=== PATIENT | female | born 1965 | race African-American/Black ===

== ENCOUNTER → 2016-11-26 | Outpatient (CLI) | payer OTHER ==
[2016-11-26 12:46] LABS: ABSOLUTE EOSINOPHILS # (AUTO) 0.2 10^3/uL (0.0-0.6); ABSOLUTE LYMPHOCYTES (AUTO) 1.1 10^3/uL (0.5-4.7); ABSOLUTE MONOCYTES (AUTO) 0.3 10^3/uL (0.1-1.4); ABSOLUTE NEUT (AUTO) 1.4 10^3/uL (1.7-8.2); BASOPHILS % (AUTO) 1.2 % (0-2); EOSINOPHILS % (AUTO) 6.3 % (0-6); HEMATOCRIT 28.8 % (36.0-47.0); HEMOGLOBIN 9.3 g/dL (12.0-15.5); HGB HCT DIFFERENCE -0.9; MEAN CORPUSCULAR HEMOGLOBIN 25.8 pg (27.0-33.4); MEAN CORPUSCULAR HGB CONC 32.1 g/dL (32.0-36.0); MEAN CORPUSCULAR VOLUME 80 fl (80-97); MONOCYTES % (AUTO) 9.6 % (3-13); RED BLOOD COUNT 3.59 10^6/uL (3.72-5.28); RED CELL DISTRIBUTION WIDTH 16.8 % (11.5-14.0); SEGMENTED NEUTROPHILS % (AUTO) 45.9 % (42-78); WHITE BLOOD COUNT 3.1 10^3/uL (4.0-10.5)
[2016-11-26 12:53] LABS: AMORPHOUS SEDIMENT,URINE 1+ /HPF; APPEARANCE,URINE CLOUDY; BILIRUBIN,URINE NEGATIVE (NEGATIVE); GLUCOSE, URINE NEGATIVE (NEGATIVE); KETONES,URINE NEGATIVE (NEGATIVE); LEUKOCYTE ESTERASE,URINE NEGATIVE (NEGATIVE); NITRITE,URINE NEGATIVE (NEGATIVE); PROTEIN,URINE NEGATIVE (NEGATIVE); URINE SPECIFIC GRAVITY 1.017; UROBILINOGEN,URINE NEGATIVE mg/dL (<2.0)
[2016-11-26 13:08] LABS: ANION GAP 11 (5-19); BLOOD UREA NITROGEN 11 mg/dL (7-20); CALCIUM 9.8 mg/dL (8.4-10.2); CARBON DIOXIDE 27 mmol/L (22-30); CHLORIDE 104 mmol/L (98-107); CREATININE RESULT 0.54 mg/dL (0.52-1.25); GLUCOSE 90 mg/dL (75-110); POTASSIUM 3.8 mmol/L (3.6-5.0)
--- NOTE | 2016-11-26 18:14 | EKG REPORT ---
SEVERITY:- NORMAL ECG - SINUS RHYTHM : Confirmed by: Sixto Montilla MD 26-Nov-2016 18:12:17
== END ==
LOC: OD 11:14
PROVIDERS: ATTEND Orthopaedic Surgery
DX: Z01.811 Encounter for preprocedural respiratory examination (principal); Z01.818 Encounter for other preprocedural examination
CPT/HCPCS: 36415; 71020; 80048; 81001; 85025; 93005; 93010

== ENCOUNTER 2016-12-27 06:07 | Inpatient (IN) | payer OTHER ==
[2016-12-16 12:11] LABS: HEMOGLOBIN 10.2 g/dL (12.0-15.5); HGB HCT DIFFERENCE -1.4; MEAN CORPUSCULAR HEMOGLOBIN 25.8 pg (27.0-33.4); MEAN CORPUSCULAR HGB CONC 31.7 g/dL (32.0-36.0); MEAN CORPUSCULAR VOLUME 82 fl (80-97); RED BLOOD COUNT 3.93 10^6/uL (3.72-5.28); RED CELL DISTRIBUTION WIDTH 16.6 % (11.5-14.0); WHITE BLOOD COUNT 3.6 10^3/uL (4.0-10.5)
[2016-12-16 12:16] LABS: AMORPHOUS SEDIMENT,URINE TRACE /HPF; APPEARANCE,URINE CLOUDY; BILIRUBIN,URINE NEGATIVE (NEGATIVE); GLUCOSE, URINE NEGATIVE (NEGATIVE); KETONES,URINE NEGATIVE (NEGATIVE); LEUKOCYTE ESTERASE,URINE NEGATIVE (NEGATIVE); NITRITE,URINE NEGATIVE (NEGATIVE); PROTEIN,URINE NEGATIVE (NEGATIVE); URINE SPECIFIC GRAVITY 1.011; UROBILINOGEN,URINE NEGATIVE mg/dL (<2.0)
[2016-12-16 12:30] LABS: ANION GAP 13 (5-19); BLOOD UREA NITROGEN 10 mg/dL (7-20); CALCIUM 9.9 mg/dL (8.4-10.2); CARBON DIOXIDE 28 mmol/L (22-30); CHLORIDE 104 mmol/L (98-107); CREATININE RESULT 0.63 mg/dL (0.52-1.25); GLUCOSE 81 mg/dL (75-110); POTASSIUM 4.2 mmol/L (3.6-5.0); SODIUM 145.4 mmol/L (137-145)
[~2016-12-27 06:07] MED LIST: BUPIVACAINE INJ/PF LIPOSOME/PF 266 MG/20 ML SDV IJ PRN; CEFAZOLIN INJ 1 GM VIAL IV PRN; IBUPROFEN 800 MG/NS 250 ML IV PRN; LACTATED RINGERS 1000 ML IV PRN; LANSOPRAZOLE 15 MG TAB.RAP.DR PO PRN; LIDOCAINE 0.5% INJ-PF (5 MG/ML) 50 ML SDV SUBCUT PRN; OXYCODONE HCL SR 10 MG TABLET PO PRN; SCOPOLAMINE HYDROBROMIDE 1.5 MG PATCH.TD72 TOP PRN; VANCOMYCIN HCL 1,000 MG in DEXTROSE 5%-WATER 250 ML IV PRN
[2016-12-27] MEDS ORDERED: THROMBIN (BOVINE) 5000 UNIT EPITAXIS KIT ONE (07:24)
[2016-12-27] MEDS ORDERED: THROMBIN (BOVINE) TOPICAL 20000 UNIT VIAL ONE (07:24)
[2016-12-27] MEDS ORDERED: BUPIVACAINE INJ/PF LIPOSOME/PF 266 MG/20 ML SDV ONE (07:24)
[2016-12-27] MEDS ORDERED: SUCCINYLCHOLINE CHLORIDE INJ 200 MG/10 ML VIAL ONE (07:39)
[2016-12-27] MEDS ORDERED: LIDOCAINE 2% INJ-PF (20 MG/ML) 10 ML AMPUL ONE (07:39)
[2016-12-27] MEDS ORDERED: DEXAMETHASONE SOD PHOSPHATE INJ 4 MG/1 ML VIAL ONE (09:16)
[2016-12-27] MEDS ORDERED: MIDAZOLAM 2 MG/2 ML INJ ONE ×2 (09:16)
[2016-12-27] MEDS ORDERED: ONDANSETRON HCL INJ/PF 4 MG/2 ML SDV ONE (09:16)
[2016-12-27] MEDS ORDERED: FENTANYL CITRATE INJ/PF 100 MCG/2 ML AMPUL ONE (09:16)
[2016-12-27] MEDS ORDERED: TRANEXAMIC ACID INJ/PF 1,000 MG/10 ML SDV IV ONE ×3 (09:17→14:00)
[2016-12-27] MEDS ORDERED: PROPOFOL INJ 200 MG/20 ML VIAL IV ONE (09:17)
[2016-12-27] MEDS ORDERED: MORPHINE SULFATE 10 MG/ML INJ ONE (09:17)
[2016-12-27] MEDS ORDERED: PROMETHAZINE HCL INJ 25 MG/1 ML VIAL IV PRN ×2 (11:41)
[2016-12-27] MEDS ORDERED: FENTANYL CITRATE INJ/PF 100 MCG/2 ML AMPUL IV PRN ×3 (11:41)
[2016-12-27] MEDS ORDERED: DIPHENHYDRAMINE HCL 50 MG/ML VIAL IV PRN ×2 (11:41→12:16)
[2016-12-27] MEDS ORDERED: MEPERIDINE HCL/PF INJ 25 MG/1 ML DISP.SYRIN IV PRN (11:41)
[2016-12-27] MEDS ORDERED: MORPHINE SULFATE 10 MG/ML INJ IV PRN ×4 (11:41→12:16)
[2016-12-27] MEDS ORDERED: ONDANSETRON 4 MG TAB.RAPDIS PO PRN (12:16)
[2016-12-27] MEDS ORDERED: MAG HYDROX/AL HYDROX/SIMETH SUSP 30 ML UDCUP PO PRN (12:16)
[2016-12-27] MEDS ORDERED: LOPERAMIDE HCL 2 MG CAPSULE PO PRN (12:16)
[2016-12-27] MEDS ORDERED: ACETAMINOPHEN 325 MG TABLET PO PRN (12:16)
[2016-12-27] MEDS ORDERED: ZOLPIDEM TARTRATE 5 MG TABLET PO PRN (12:16)
[2016-12-27] MEDS ORDERED: MORPHINE SULFATE 10 MG/ML INJ IM PRN (12:16)
[2016-12-27] MEDS ORDERED: ONDANSETRON HCL INJ/PF 4 MG/2 ML SDV IV PRN (12:16)
--- NOTE | 2016-12-27 12:16 | Operative Report ---
Operative Report DATE OF SURGERY: 12/27/16 PREOPERATIVE DIAGNOSIS: Right knee arthritis OPERATION: Right knee arthroplasty SURGEON: TOM BOUDREAUX ANESTHESIA: Spinal TISSUE REMOVED OR ALTERED: Bone to pathology ESTIMATED BLOOD LOSS: 100 PROCEDURE: Implants used: Femur: Striker triathlon #5 CR femur Tibia:, Number 4 tibia Tibial liner: 9 mm CS insert Patella:, 35 mm oval patella Procedure with the patient supine on the operating table the, right the limb is prepped and draped in a sterile fashion. The limb was elevated for exsanguination and the tourniquet inflated to 280 torr. A standard midline median parapatellar approach the knee is taken. Access is gained to the femoral canal through the intercondylar notch. Intramedullary alignment instrumentation used to resect 10 mm of distal femur in 5 of valgus. Sizing guide indicated a size, 5 femur. Appropriate cutting jig is then used to fashion anterior posterior and chamfer cuts. A trial reduction femurs performed and this is judged to be adequate. Attention was next turned to the tibia. Using an extra medullary alignment system 9 millimeters was resected off the lateral tibial plateau. This is sized to a size for tibia. A trial reduction was now performed with a 5 femur and a 4 tibia using a 9 millimeters spacer. It is full extension and central patellofemoral tracking. The articular surface the patella was next resected using an oscillating saw. All trial implants were removed. Polymethylmethacrylate is mixed and used to cement the above implants in place. On adequate curing the cement excess cement was removed the tourniquet was deflated hemostasis obtained the wound is then closed in layers using interrupted Vicryl followed by daniel. A sterile compressive dressing was applied and the patient returned to recovery room in satisfactory condition.
[2016-12-27] MEDS: SENNOSIDES/DOCUSATE 8.6-50 MG 1 EACH TABLET PO SCH (18:48)
[2016-12-27] MEDS: IBUPROFEN 800 MG in NORMAL SALINE 250 ML IV SCH (20:33)
[2016-12-27] MEDS: RIVAROXABAN 10 MG TABLET PO SCH (21:43)
[2016-12-27] MEDS: OXYCODONE HCL SR 10 MG TABLET PO SCH (21:43)
[2016-12-28] MEDS ORDERED: VANCOMYCIN HCL 1,000 MG in DEXTROSE 5%-WATER 250 ML IV ONE ×2
[2016-12-28] MEDS: IBUPROFEN 800 MG in NORMAL SALINE 250 ML IV SCH ×3 (03:13→20:25)
[2016-12-28 05:46] LABS: HEMATOCRIT 23.7 % (36.0-47.0); HGB HCT DIFFERENCE -0.3; MEAN CORPUSCULAR HEMOGLOBIN 26.4 pg (27.0-33.4); MEAN CORPUSCULAR HGB CONC 32.7 g/dL (32.0-36.0); MEAN CORPUSCULAR VOLUME 81 fl (80-97); RED BLOOD COUNT 2.94 10^6/uL (3.72-5.28); RED CELL DISTRIBUTION WIDTH 16.8 % (11.5-14.0); WHITE BLOOD COUNT 6.8 10^3/uL (4.0-10.5)
[2016-12-28 05:51] LABS: HEMOGLOBIN 7.8 g/dL (12.0-15.5)
[2016-12-28 06:01] LABS: ANION GAP 11 (5-19); BLOOD UREA NITROGEN 11 mg/dL (7-20); CALCIUM 9.1 mg/dL (8.4-10.2); CARBON DIOXIDE 26 mmol/L (22-30); CHLORIDE 104 mmol/L (98-107); CREATININE RESULT 0.68 mg/dL (0.52-1.25); GLUCOSE 104 mg/dL (75-110); POTASSIUM 3.4 mmol/L (3.6-5.0)
[2016-12-28] MEDS: LANSOPRAZOLE 30 MG TAB.RAP.DR PO SCH (06:07)
--- NOTE | 2016-12-28 07:00 | PDOC PROGRESS REPORT ---
Subjective Progress Note for:: 12/28/16 Subjective:: Patient with minor complaints of pain Physical Exam Vital Signs: Temp Pulse Resp BP Pulse Ox 36.9 C 85 18 119/84 98 12/28/16 04:00 12/28/16 04:00 12/28/16 04:00 12/28/16 04:00 12/28/16 04:00 Intake & Output 12/26/16 12/27/16 12/28/16 06:59 06:59 06:59 Intake Total 5788 Output Total 3225 Balance 2563 General appearance: PRESENT: no acute distress Head exam: PRESENT: normocephalic Respiratory exam: PRESENT: unlabored Cardiovascular exam: PRESENT: RRR Pulses: PRESENT: +1 pedal pulses bilateral GI/Abdominal exam: PRESENT: soft Rectal exam: PRESENT: deferred Extremities exam: PRESENT: other - Right lower extremity dressing clean dry and intact. Distal neurovascular examination is intact. Psychiatric exam: PRESENT: appropriate affect, normal mood. ABSENT: homicidal ideation, suicidal ideation Skin exam: PRESENT: dry, intact, warm. ABSENT: cyanosis, rash Results Laboratory Results: 12/28/16 05:10 12/28/16 05:10 12/28/16 12/28/16 05:10 05:10 WBC 6.8 RBC 2.94 L Hgb 7.8 L Hct 23.7 L MCV 81 MCH 26.4 L MCHC 32.7 RDW 16.8 H Plt Count 210 Sodium 141.0 Potassium 3.4 L Chloride 104 Carbon Dioxide 26 Anion Gap 11 BUN 11 Creatinine 0.68 Est GFR ( Amer) > 60 Est GFR (Non-Af Amer) > 60 Glucose 104 Calcium 9.1 Impressions: Knee X-Ray 12/27/16 12:18 IMPRESSION: Right total knee arthroplasty in good position. Status: Imported from PACS Assessment & Plan - Diagnosis (1) Arthritis of right knee Is this a current diagnosis for this admission?: YesPlan: 51-year-old black female, postop day 1 from right knee arthroplasty. Other than complaints of pain. The patient seems to be doing well. She was not seen by physical therapy yesterday. (2) Acute blood loss as cause of postoperative anemia Is this a current diagnosis for this admission?: YesPlan: Hematocrit this morning is 23.7%. She started at 32%. There is minimal blood loss and drop. Plan will be to repeat hematocrit since she is asymptomatic. - Time Time Spent with patient: 15-24 minutes Anticipated discharge: Home with Homehealth Within: within 24 hours
[2016-12-28] MEDS: OXYCODONE HCL SR 10 MG TABLET PO SCH ×2 (09:43→21:22)
[2016-12-28] MEDS: PRENATAL VITAMIN W-O CA NO5/FE FUMARATE/FA CAPSULE PO SCH (09:44)
[2016-12-28] MEDS: SENNOSIDES/DOCUSATE 8.6-50 MG 1 EACH TABLET PO SCH ×2 (09:44→17:23)
[2016-12-28] MEDS: OXYCODONE HCL IR 5 MG TABLET PO PRN (17:23)
[2016-12-28] MEDS: RIVAROXABAN 10 MG TABLET PO SCH (21:22)
[2016-12-29] MEDS: OXYCODONE HCL IR 5 MG TABLET PO PRN (02:27)
[2016-12-29] MEDS: IBUPROFEN 800 MG in NORMAL SALINE 250 ML IV SCH ×2 (03:23→11:51)
[2016-12-29] MEDS: LANSOPRAZOLE 30 MG TAB.RAP.DR PO SCH (05:57)
--- NOTE | 2016-12-29 06:53 | PDOC DISCHARGE SUMMARY ---
General - Admit/Disc Date/PCP Admission Date/Primary Care Provider: 12/27/16 07:34 JUAN VENEGAS Discharge Date: 12/29/16 - Discharge Diagnosis (1) Arthritis of right knee Is this a current diagnosis for this admission?: Yes (2) Acute blood loss as cause of postoperative anemia Is this a current diagnosis for this admission?: Yes - Additional Information Resuscitation Status: Full Code Discharge Diet: As Tolerated, Regular Discharge Activity: Balance Activity w/Rest Home Medications: Tramadol HCl [Ultram] 50 mg PO Q6 #10 tablet 06/05/16 Aspirin/Acetaminophen/Caffeine [Excedrin Extra Strength Caplet] 1 tab-cap PO DAILY PRN 12/14/16 Loperamide HCl [Loperamide] 2 mg PO DAILY PRN 12/14/16 Oxycodone HCl [Oxy-Ir 5 mg Tablet] 5 mg PO Q6HP PRN #0 tablet 12/29/16 Rivaroxaban [Xarelto 10 mg Tablet] 10 mg PO QHS #0 tablet 12/29/16 History of Present Illness History of Present Illness: GERHARD RYAN is a 51 year old female with progressive right knee pain and functional disability secondary asked arthritis. She is admitted for elective right knee arthroplasty. Hospital Course Hospital Course: Patient submitted through the operating room where she undergoes an uncomplicated right knee arthroplasty. She's returned to floor in satisfactory condition. She makes excellent progress with physical therapy. Pain is well controlled. Postoperative hematocrit is 23.7%. Because of a lack of clinical signs or symptoms associated with acute blood loss anemia. This was observed. Repeat hematocrit is pending. Her graft. The patient substrate for discharge home with home health nursing, home health physical therapy, we'll Walker, bedside commode. Physical Exam Vital Signs: Temp Pulse Resp BP Pulse Ox 37.7 C 93 19 133/65 H 97 12/29/16 04:00 12/28/16 23:18 12/28/16 23:18 12/28/16 23:18 12/28/16 23:18 Intake & Output 12/27/16 12/28/16 12/29/16 06:59 06:59 06:59 Intake Total 5788 260 Output Total 3225 Balance 2563 260 General appearance: PRESENT: no acute distress Head exam: PRESENT: normocephalic Respiratory exam: PRESENT: unlabored Cardiovascular exam: PRESENT: RRR Pulses: PRESENT: +1 pedal pulses bilateral Vascular exam: PRESENT: normal capillary refill GI/Abdominal exam: PRESENT: soft Rectal exam: PRESENT: deferred Extremities exam: PRESENT: other - Right lower extremity yaneth dressing clean dry and intact. Distal neurovascular examinations intact. Neurological exam: PRESENT: alert, awake, oriented to person, oriented to place , oriented to time, oriented to situation. ABSENT: motor sensory deficit Psychiatric exam: PRESENT: appropriate affect, normal mood. ABSENT: homicidal ideation, suicidal ideation Skin exam: PRESENT: dry, intact, warm. ABSENT: cyanosis, rash Results Laboratory Results: 12/28/16 05:10 Impressions: Knee X-Ray 12/27/16 12:18 IMPRESSION: Right total knee arthroplasty in good position. Status: Imported from PACS Plan Discharge Plan: Patient will be discharged home with home health nursing, home health physical therapy, we'll Walker, bedside commode. This finger nurse service, we'll change the right knee yaneth dressing on postop day 7 replace it with an OpSite. Patient will follow up with Dr. Perea in the [facility] for surgery in approximately 2 weeks for staple removal.
[2016-12-29 06:56] LABS: HEMATOCRIT 22.7 % (36.0-47.0); HGB HCT DIFFERENCE -0.5; MEAN CORPUSCULAR HEMOGLOBIN 26.4 pg (27.0-33.4); MEAN CORPUSCULAR HGB CONC 32.7 g/dL (32.0-36.0); MEAN CORPUSCULAR VOLUME 81 fl (80-97); RED BLOOD COUNT 2.82 10^6/uL (3.72-5.28); RED CELL DISTRIBUTION WIDTH 16.9 % (11.5-14.0)
[2016-12-29 07:00] LABS: HEMOGLOBIN 7.4 g/dL (12.0-15.5)
[2016-12-29] MEDS: PRENATAL VITAMIN W-O CA NO5/FE FUMARATE/FA CAPSULE PO SCH (11:02)
[2016-12-29] MEDS: OXYCODONE HCL SR 10 MG TABLET PO SCH (11:02)
[2016-12-29] MEDS: SENNOSIDES/DOCUSATE 8.6-50 MG 1 EACH TABLET PO SCH (11:02)
[2016-12-29 12:07] VITALS: BP 140/75
== END 2016-12-29 15:10 | disposition home health service (06) | DRG 470 ==
LOC: INOR 07:34 → 4S 14:09
PROVIDERS: ADMIT Orthopaedic Surgery; ATTEND Orthopaedic Surgery
PROC: 0SRC0J9 Replacement of Right Knee Joint with Synthetic Substitute, Cemented, Open Approach (ICD-10-PCS; principal; 2016-12-27 10:00)
DX: M17.11 Unilateral primary osteoarthritis, right knee (principal); D62 Acute posthemorrhagic anemia; I10 Essential (primary) hypertension; E66.9 Obesity, unspecified; I83.90 Asymptomatic varicose veins of unspecified lower extremity; Z68.31 Body mass index [BMI] 31.0-31.9, adult; K58.9 Irritable bowel syndrome, unspecified; Z98.51 Tubal ligation status; Z79.899 Other long term (current) drug therapy; Z82.49 Family history of ischemic heart disease and other diseases of the circulatory system; Z83.3 Family history of diabetes mellitus
CPT/HCPCS: 01402; 36415; 80048; 81001; 81025; 85027; 88305; 88311; 94799; C2625; C9290; J0330; J0690; J1100; J1741; J2250; J2270; J2405; J2704; J3010; J3370; J3490; J7050; J7060